=== PATIENT | male | born 1950 | race Caucasian/White ===

== ENCOUNTER 2022-03-23 11:55 | Emergency (ER) | payer OTHER, MEDICARE ==
[~2022-03-23] VITALS: Ht 180.3 cm; Wt 163.3 kg
[2022-03-23] MEDS: 0.9%NACL 1000ML 1,000 ML IV ONE (15:34)
[2022-03-23] MEDS: KETOROLAC 30MG VIAL (30MG/ML) IVP ONE (15:34)
[2022-03-23 15:44] LABS: BASOPHILS % (AUTO) 0.5 % (0.0-5.0); EOSINOPHILS % (AUTO) 2.1 % (0.0-8.0); HEMATOCRIT 47.1 % (42-54); LYMPHOCYTES % (AUTO) 27.3 % (21.0-51.0); MEAN CORPUSCULAR HEMOGLOBIN 30.8 pg (27.0-33.0); MEAN CORPUSCULAR HGB CONC 32.7 g/dL (32.0-36.0); MEAN CORPUSCULAR VOLUME 94.2 fL (79-99); MONOCYTES % (AUTO) 7.6 % (3.0-13.0); NEUTROPHILS % (AUTO) 61.3 % (40.0-77.0); PLATELET COUNT (AUTO) 154 K/uL (130-400); RED CELL DISTRIBUTION WIDTH 13.1 % (11.0-15.5)
[2022-03-23 15:56] LABS: POTASSIUM 4.1 mmol/L (3.5-5.1)
[2022-03-23 16:09] LABS: ALBUMIN 3.3 g/dL (3.5-5.0); TOTAL PROTEIN, SERUM 7.5 g/dL (6.0-8.3)
[2022-03-23 16:36] LABS: APPEARANCE,URINE CLEAR (CLEAR); BILIRUBIN,URINE NEGATIVE (NEGATIVE); COLOR,URINE LIGHT-YELLOW (YELLOW); GLUCOSE, URINE (UA) NEGATIVE (NEGATIVE); KETONES,URINE NEGATIVE (NEGATIVE); LEUKOCYTE ESTERASE ,URINE 25 Leu/uL (NEGATIVE); NITRATE,URINE NEGATIVE (NEGATIVE); OCCULT BLOOD,URINE NEGATIVE (NEGATIVE); PROTEIN,URINE NEGATIVE (NEGATIVE); UROBILINOGEN,URINE 0.2 mg/dL (0.2-1.0)
[2022-03-23 16:47] LABS: MUCUS,URINE RARE LPF (None Seen); RBC,URINE 0-1 /HPF (0-1); SQUAMOUS EPITHELIAL CELL,UR RARE /HPF (0-2)
[2022-03-23 18:08] VITALS: BP 148/78
== END 2022-03-23 18:10 | disposition home or self-care (01) ==
LOC: EDH 11:55
DX: N20.0 Calculus of kidney (principal); I25.10 Atherosclerotic heart disease of native coronary artery without angina pectoris; E11.9 Type 2 diabetes mellitus without complications; Z79.899 Other long term (current) drug therapy
CPT/HCPCS: 99284; 74176; 96374; 96361; 80053; 85025; 81001; 36415; J7030; J1885

== ENCOUNTER 2024-03-09 11:39 | Emergency (ER) | payer OTHER, MEDICARE ==
[~2024-03-09] VITALS: Ht 180.3 cm; Wt 167.8 kg
--- NOTE | 2024-03-09 11:53 | ERN ---
ED Note History of Present Illness Stated Complaint: LEFT ANKLE PAIN, LEFT KNEE PAIN, SINUSES Time Seen by MD: 11:40 Dictation: PATIENT IS HERE WITH MULTIPLE COMPLAINTS TO INCLUDE LEFT ANKLE AND LEFT KNEE PAIN SECONDARY TO A SLIP AND FALL TWO WEEKS AGO. HE STATES HE WAS SEEN AT ANOTHER EMERGENCY ROOM AND HAD X-RAYS DONE THAT WERE NEGATIVE HOWEVER HAS NOT HAD ANY FOLLOW UP. HE STATES DAY OF THE PAIN IS GETTING WORSE AND THE SWELLING TO HIS LEFT KNEE IS WORSE. HE DOES STATE HE HAS A HISTORY OF ELEVATED URIC ACID AND GOUT. SECOND COMPLAINT IS HE HAS HAD HE HAS BLOODY SINUS DISCHARGE AND CONGESTION FOR THE LAST 2-3 DAYS. NO FEVER NO CHILLS NO NAUSEA VOMITING. NO PRIMARY CARE DOCTOR PATIENT IS A [facility] Allergies: Coded Allergies: No Known Drug Allergies (Unverified Allergy, Unknown, 03/23/22) Home Meds Active Scripts Ibuprofen (Ibuprofen 800 mg Tab) 800 Mg Tab, 800 MG PO Q8H PRN for fever or pain, #30 TAB 0 Refills Prov:MICHAEL MEJIA HAZARD WASTE HANDLER 03/09/24 Colchicine (Colchicine) 0.6 Mg Capsule, 0.6 MG PO AD, #20 CAP 0 Refills ONE TABLET BY MOUTH HOURLY UNTIL PAIN IS RESOLVED, GASTRIC UPSET OR NAUSEA VOMITING, MAXIMUM OF THREE TABLETS HAVE BEEN TAKEN. Prov:MICHAEL MEJIA HAZARD WASTE HANDLER 03/09/24 Amoxicillin/Potassium Clav (Amox Tr-K Clv 875-125 mg Tab) 875 Mg-125 Mg Tablet, 1 EACH PO BID for 10 Days, #20 TAB 0 Refills Prov:MICHAEL MEJIA HAZARD WASTE HANDLER 03/09/24 Past Medical History Past Medical History: CAD, Diabetes-Type II, Other Additional Past Medical Hx: LEG EDEMA X 2 Surgical History: Other Surgical History Other: CARDIAC STENTS RN Note Reviewed/Agreed w/PFSH: Yes Review of System Dictation CONSTITUTIONAL: NEGATIVE EXCEPT FOR HPI HEAD/FACE: NEGATIVE EXCEPT FOR HPI EENT: NEGATIVE EXCEPT FOR HPI RESPIRATORY: NEGATIVE EXCEPT FOR HPI GASTROINTESTINAL/ABDOMINAL: NEGATIVE EXCEPT FOR HPI GENITOURINARY: NEGATIVE EXCEPT FOR HPI MUSCULOSKELETAL: NEGATIVE EXCEPT FOR HPI LEFT KNEE, LEFT ANKLE PAIN TWO WEEKS INTEGUMENTARY: NEGATIVE EXCEPT FOR HPI NEUROLOGICAL/PSYCH: NEGATIVE EXCEPT FOR HPI HEMATOLOGIC/LYMPHATIC: NEGATIVE EXCEPT FOR HPI ALL SYSTEMS NEGATIVE, EXCEPT NOTED ABOVE. 13 POINT REVIEW OF SYSTEMS ASSESSED AND ALL NEGATIVE EXCEPT FOR ABOVE. Initial Vital Sign VS Vital Signs Date Time Temp Pulse Resp B/P (MAP) Pulse Ox O2 Delivery O2 Flow Rate FiO2 03/09/24 11:53 97.3 69 18 144/55 97 Room Air 03/09/24 11:53 0 21 Physical Exam Dictation VITAL SIGNS REVIEWE MODERATE ACUTE DISTRESS, WELL DEVELOPED, NOURISHED. MORBIDLY OBESE HEAD AND FACE: NON-TRAUMATIC. BILATERAL FRONTAL AND ETHMOID TENDERNESS WITH PALPATION EYES: PERRL, PINK CONJUNCTIVAS, EYELID NO TRAUMA, ANTERIOR CHAMBER WITH ARCUS SENILIS. EARS: PINNAS INTACT AND NO SIGNS OF TRAUMA OR ERYTHEMA EAR CANALS CLEAR AND NO DISCHARGE TM NO ERYTHEMA NOSE: NO DISCHARGE, NO BLEEDING. OROPHARYNX: MOUTH NORMAL, TONGUE PINK, PHARYNX CLEAR,NO ERYTHEMA, TONSILS NO EXUDATES, NO ABSCESSES NOTED, MUCOUS MEMBRANE MOIST NECK: SUPPLE, NON-TENDER, NO THYROMEGALY, NO MASSES, NO JVD, NO BRUITS BREAST:DEFERRED CHEST:NO TENDERNESS, NO CREPITUS, NO PARADOXICAL MOVEMENT, NO RETRACTIONS LUNGS:CLEAR, WELL-VENTILATED, SYMMETRIC, NO RALES, NO WHEEZING, NO RHONCHI, NO STRIDOR, GOOD BREATH SOUNDS BILATERALLY HEART: REGULAR RATE, REGULAR RHYTHM, NO MURMUR, NO GALLOPS VASCULAR: NO PERIPHERAL EDEMA, ABDOMEN: SOFT, POSITIVE BOWEL SOUNDS, NONDISTENDED, NO GUARDING, NONTENDER, NO REBOUND, NO MASSES NO HEPATOMEGALY, NO SPLENOMEGALY, NO SQUIRES'S SIGN, NO HERNIAS. RECTAL: DEFERRED GENITAL: DEFERRED NEUROLOGICAL: NORMAL SPEECH, MOTOR FUNCTION INTACT, SENSORY FUNCTION INTACT MUSCULOSKELETAL: NECK NONTENDER, FULL RANGE OF MOTION, BACK NONTENDER, FULL RANGE OF MOTION, EXTREMITIES: DIFFUSE LEFT KNEE AND LEFT ANKLE PAIN TENDERNESS. RANGE OF MOTION NORMAL SKIN: COLOR PINK, DRY, NO TURGOR, NO RASH, NO LACERATIONS, NO ABRASIONS, NO CONTUSIONS. LYMPHATIC: DEFERRED Results (Laboratory/Radiology) Laboratory/Radiology Laboratory Tests Test 03/09/24 12:13 03/09/24 13:44 White Blood Count 13.0 K/uL (4.8-10.8) H Red Blood Count 4.17 MIL/uL (4.50-6.20) L Hemoglobin 13.6 g/dL (14.0-18.0) L Hematocrit 41.6 % (42-54) L Mean Corpuscular Volume 99.8 fL (79-99) H Mean Corpuscular Hemoglobin 32.6 pg (27.0-33.0) Mean Corpuscular Hemoglobin Concent 32.7 g/dL (32.0-36.0) Red Cell Distribution Width 12.6 % (11.0-15.5) Platelet Count 187 K/uL (130-400) Mean Platelet Volume 10.5 fL (7.5-10.5) Immature Granulocyte % (Auto) 2.1 % (0-1) H Neutrophils (%) (Auto) 66.0 % (40.0-77.0) Lymphocytes (%) (Auto) 21.6 % (21.0-51.0) Monocytes (%) (Auto) 7.8 % (3.0-13.0) Eosinophils (%) (Auto) 2.0 % (0.0-8.0) Basophils (%) (Auto) 0.5 % (0.0-5.0) Neutrophils # (Auto) 8.6 K/uL (1.8-7.7) H Lymphocytes # (Auto) 2.8 K/uL (1.0-4.8) Monocytes # (Auto) 1.0 K/uL (0.1-1.0) Eosinophils # (Auto) 0.26 K/uL (0.00-0.70) Basophils # (Auto) 0.06 K/uL (0.00-0.20) Absolute Immature Granulocyte (auto 0.27 K/uL (0-1) Nucleated Red Blood Cells 0.0 % (0.0-0.19) Sodium Level 139 mmol/L (136-145) Potassium Level 4.0 mmol/L (3.5-5.1) Chloride Level 102 mmol/L (101-111) Carbon Dioxide Level 26 mmol/L (21-32) Blood Urea Nitrogen 13 mg/dL (7-18) Creatinine 1.3 mg/dL (0.5-1.3) Glomerular Filtration Rate Calc 58 mL/min (>90) Random Glucose 211 mg/dL (70-105) H Uric Acid 10.0 mg/dL (2.6-7.2) H Total Calcium 8.7 mg/dL (8.5-10.1) Influenza Type A Antigen Negative For Type A Influenza Type B Antigen Negative For Type B SARS-CoV-2 Antigen (Rapid) PRESUMPTIVE NEGATIVE Group A Streptococcus Rapid positive (NEGATIVE) *A Labs Reviewed?: Yes ED Course ED Course Orders Procedure Category Date Status Time Uric Acid LAB 03/09/24 Complete 11:50 Covid19 (Sars Antigen LAB 03/09/24 Complete Rapid) 11:50 Rapid (Group A Strep) LAB 03/09/24 Complete 11:50 Influenza Type A & B, LAB 03/09/24 Complete Rapid 11:50 Ankle Comp 3vws Lt RAD 03/09/24 Resulted 11:50 Knee 3vws Lt RAD 03/09/24 Resulted 11:50 Cbc With Differential LAB 03/09/24 Complete 11:50 Basic Metabolic Panel LAB 03/09/24 Complete 11:50 Amox/Clav 875/125mg PHA 03/09/24 Complete Tab (Augmentin 875-1 14:00 Dexamethasone 4mg/Ml PHA 03/09/24 Complete 1ml Vial (Dexametha 14:00 Ketorolac 60mg/2ml PHA 03/09/24 Complete (Toradol 60mg/2ml) 14:00 Current Medications Medications (Trade) Dose Ordered Sig/Oanh Route PRN Reason Start Time Stop Time Status Last Admin Dose Admin Amoxicillin/ Clavulanate Potassium (Augmentin 875-125 Tablet) 1 each ONCE ONCE PO 03/09/24 14:00 03/09/24 14:01 DC 03/09/24 14:15 Dexamethasone Sodium Phosphate (dexaMETHasone 4MG/ML 1ML VIAL) 4 mg ONCE ONCE IM 03/09/24 14:00 03/09/24 14:01 DC 03/09/24 14:15 Ketorolac Tromethamine (toRADol 60MG/ 2ML) 60 mg ONCE ONCE IM 03/09/24 14:00 03/09/24 14:01 DC 03/09/24 14:16 Vital Signs Date Time Temp Pulse Resp B/P (MAP) Pulse Ox O2 Delivery O2 Flow Rate FiO2 03/09/24 13:47 98.1 68 16 140/56 98 Room Air* 0 21 03/09/24 11:53 97.3 69 18 144/55 97 Room Air* 0 21 03/09/24 11:53 97.3 69 18 144/55 97 Room Air FOURTEEN 20 PATIENT HAS A ACUTE GOUT FLARE WITH A URIC ACID OF 10. HE WILL BE GIVEN DECADRON/TORADOL/COLCHICINE WE WILL BE PRESCRIBED OUTPATIENT. ADDITIONALLY HE WILL BE TREATED FOR ACUTE ETHMOID AND FRONTAL SINUSITIS WITH AUGMENTIN TOLD TO SEE HIS PRIMARY CARE DOCTOR Medical Decision Making MDM MDM: DIFFERENTIAL DIAGNOSIS: SINUSITIS/KNEE AND ANKLE SPRAIN/FRACTURE, ACUTE GOUTY ARTHRITIS RATIONALE: TESTS CONSIDERED AND ORDERED SECONDARY TO SHARED DECISION MAKING INCLUDE: PREVIOUS OUTSIDE RECORDS REVIEWED: OLD ER VISITS. RISK OF COMPLICATION AND/OR MORBIDITY OR MORTALITY OF PATIENT MANAGEMENT: NONE NO MEDICATIONS-PER MEDICATION RECONCILIATION LABS/RADIOLOGY NEED FOR EMERGENCY MAJOR/MINOR SURGERY: NO THERE ARE NO SOCIAL CONCERNS WITH THIS PATIENT. PRESCRIPTION DRUG MANAGEMENT AUGMENTIN/COLCHICINE PRESCRIPTIONS WILL INCLUDE SYMPTOMATIC CARE PATIENT'S PRIOR EXTERNAL MEDICAL RECORDS FROM OTHER ER VISITS WERE REVIEWED BY ME INDICATED. PRIOR TESTING AND RESULTS FROM PREVIOUS VISITS WERE REVIEWED. PRIOR TESTS WERE TAKEN INTO ACCOUNT WITH MEDICAL DECISION MAKING AND RESOURCE UTILIZATION, INDEPENDENT HISTORIAN/HISTORIANS WERE USED TO OBTAIN COMPLETE M EDICAL HISTORY. I INDEPENDENTLY INTERPRETED THE TEST THAT WERE PERFORMED, RESULTS WERE REVIEWED BY ME AND CONSIDERED FINDINGS ON RADIOLOGY IF ORDERED. MEDICAL MANAGEMENT AND EXAMINATION INTERPRETATION DISCUSSIONS WERE HAD BY ME WITH OTHER QUALIFIED HEALTHCARE PROFESSIONALS INDICATED FOR THE PATIENT'S CARE. DX & DISP Disposition: Discharge Departure Impression: Primary Impression: Gout flare Additional Impressions: Acute frontal sinusitis, unspecified, Acute ethmoidal sinusitis, unspecified, Acute ethmoidal sinusitis, Arthralgia, Acute streptococcal pharyngitis Condition: Stable Scripts Ibuprofen (Ibuprofen 800 mg Tab) 800 Mg Tab 800 MG PO Q8H PRN for fever or pain, #30 TAB 0 Refills Prov: MICHAEL MEJIA HAZARD WASTE HANDLER 03/09/24 Colchicine (Colchicine) 0.6 Mg Capsule 0.6 MG PO AD, #20 CAP 0 Refills ONE TABLET BY MOUTH HOURLY UNTIL PAIN IS RESOLVED, GASTRIC UPSET OR NAUSEA VOMITING, MAXIMUM OF THREE TABLETS HAVE BEEN TAKEN. Prov: MICHAEL MEJIA HAZARD WASTE HANDLER 03/09/24 Amoxicillin/Potassium Clav (Amox Tr-K Clv 875-125 mg Tab) 875 Mg-125 Mg Tablet 1 EACH PO BID for 10 Days, #20 TAB 0 Refills Prov: MICHAEL MEJIA HAZARD WASTE HANDLER 03/09/24 Additional Instructions: FOLLOW-UP WITH PRIMARY CARE PROVIDER IN 1 TO 2 DAYS. TAKE MEDICATIONS DIRECTED HERE IN THE EMERGENCY ROOM. OKAY TO CONTINUE HOME MEDICATIONS UNLESS OTHERWISE DISCUSSED DURING YOUR VISIT IN THE EMERGENCY ROOM TODAY. RETURN TO YOUR NEAREST EMERGENCY ROOM IF SYMPTOMS WORSEN OR IF THERE IS NO IMPROVEMENT. CALL 911 IF YOU NEED IMMEDIATE ASSISTANCE. TAKE TYLENOL OR MOTRIN BLOM-[id number]-[id number] NEEDED AND IF NO CONTRAINDICATIONS ARE PRESENT. INCREASE ORAL HYDRATION. A WOUND CULTURE OR URINE CULTURE WAS ORDERED HERE IN THE EMERGENCY ROOM DEPARTMENT PLEASE FOLLOW-UP WITH PRIMARY CARE PROVIDER AND ADVISE THEM TO GET REPEAT PORTS FROM OUR FACILITY. IF YOU HAD ANY RADHA WRAP/SPLINTS THAT WERE APPLIED HERE, PLEASE DO NOT REMOVE THEM UNTIL YOU SEE YOUR PRIMARY CARE OR SPECIALTY. TAKE ANTIBIOTICS DIRECTED UNTIL GONE., TAKE COLCHICINE DIRECTED AND DISCUSSED FOR YOUR GOUT. SEE YOUR PRIMARY CARE DOCTOR FOR FOLLOW UP IN 1-2 DAYS. Referrals: SELF,REFERRAL (PCP) I have reviewed the case, and I agree with, Diagnosis and Plan I performed the substantive portion of the visit. I have reviewed and personally made and approve the management plan that is documented in the notes by myself or the DOROTHY. I acknowledge full responsibility for the patient's management plan. MICHAEL MEJIA NP Mar 09, 2024 11:53 HELIO MCCALLUM MD Mar 10, 2024 12:43
[2024-03-09 12:23] LABS: BASOPHILS # (AUTO) 0.06 K/uL (0.00-0.20); BASOPHILS % (AUTO) 0.5 % (0.0-5.0); EOSINOPHILS # (AUTO) 0.26 K/uL (0.00-0.70); HEMATOCRIT 41.6 % (42-54); IMMATURE GRANULOCYTE ABSOLUTE 0.27 K/uL (0-1); LYMPHOCYTES # (AUTO) 2.8 K/uL (1.0-4.8); LYMPHOCYTES % (AUTO) 21.6 % (21.0-51.0); MEAN CORPUSCULAR HEMOGLOBIN 32.6 pg (27.0-33.0); MEAN CORPUSCULAR HGB CONC 32.7 g/dL (32.0-36.0); MEAN CORPUSCULAR VOLUME 99.8 fL (79-99); MONOCYTES % (AUTO) 7.8 % (3.0-13.0); NEUTROPHILS # (AUTO) 8.6 K/uL (1.8-7.7); PLATELET COUNT (AUTO) 187 K/uL (130-400); RED BLOOD CELL COUNT(AUTO) 4.17 MIL/uL (4.50-6.20); RED CELL DISTRIBUTION WIDTH 12.6 % (11.0-15.5)
[2024-03-09 13:07] LABS: CREATININE 1.3 mg/dL (0.5-1.3)
--- NOTE | 2024-03-09 13:23 | HMCIMG ---
KNEE 3VWS LT INDICATION: LEFT KNEE PAIN STATUS POST SAME LEVEL FALL TWO WEEKS AGO TECHNIQUE: KNEE 3VWS LT. FINDINGS/IMPRESSION: No displaced fracture or dislocation is seen. Correlate clinically. There is diffuse soft tissue swelling. Mild degenerative changes are seen. No radiopaque foreign body is identified.
--- NOTE | 2024-03-09 13:30 | HMCIMG ---
ANKLE COMP 3VWS LT INDICATION: LEFT ANKLE PAIN STATUS POST FALL TWO WEEKS AGO TECHNIQUE: ANKLE COMP 3VWS LT. FINDINGS/IMPRESSION: No displaced fracture or dislocation is seen. Correlate clinically. There is diffuse soft tissue swelling. Degenerative changes are noted. No radiopaque foreign body is identified.
[2024-03-09 13:47] VITALS: BP 140/56; PULSE 68; RESP 16; TEMP 98.1; O2SAT 98
[2024-03-09] MEDS: dexaMETHasone SOD PHOSPHATE 4 MG/ML 1ML VIAL IM ONE (14:15)
[2024-03-09] MEDS: AMOX/CLAV 875/125MG TAB PO ONE (14:15)
[2024-03-09] MEDS: ketOROlac 60 MG VIAL (30MG/ML) IM ONE (14:16)
[2024-03-09 14:19] LABS: RAPID GROUP A STREP positive (NEGATIVE)
[2024-03-09 14:24] LABS: INFLUENZA TYPE A Negative For Type A (NEGATIVE); INFLUENZA TYPE B Negative For Type B (NEGATIVE)
[2024-03-09 14:26] LABS: COVID19 (SARS ANTIGEN RAPID) PRESUMPTIVE NEGATIVE (NEGATIVE)
[2024-03-09] MEDS ORDERED: AMOX1TAB16 PO (14:26)
[2024-03-09] MEDS ORDERED: COLC0.6C3 PO (14:26)
[2024-03-09] MEDS ORDERED: IBUP-2077 PO (14:26)
== END 2024-03-09 15:22 | disposition home or self-care (01) ==
LOC: EDH 11:39
DX: M10.9 Gout, unspecified (principal); J01.10 Acute frontal sinusitis, unspecified; J01.20 Acute ethmoidal sinusitis, unspecified; J02.0 Streptococcal pharyngitis; I25.10 Atherosclerotic heart disease of native coronary artery without angina pectoris; E11.9 Type 2 diabetes mellitus without complications; M17.12 Unilateral primary osteoarthritis, left knee; Z95.5 Presence of coronary angioplasty implant and graft; Z20.822 Contact with and (suspected) exposure to COVID-19
CPT/HCPCS: 99283; 87426; 84550; 80048; 85025; 87880; 87804 ×2; 36415; 73610; 73562; 96372 ×2; J1100; J1885